=== PATIENT | female | born 1995 | race American Indian/Alaskan Native ===

== ENCOUNTER 2019-04-08 13:08 | Emergency (ER) | payer BC, OTHER ==
[2019-04-08] MEDS ORDERED: METOCLOPRAMIDE 10 MG/2 ML INJ IV ONE (16:33)
[2019-04-08] MEDS ORDERED: SODIUM CHLORIDE 0.9% 1000 ML 1,000 ML IV ONE (16:33)
--- NOTE | 2019-04-08 16:35 | Event Note ---
ED Screening Note Date of service: 04/08/19 Time: 16:31 ED Screening Note: 23 y old female at about 10 weeks gestation presents for nausea and vomitting and unable to hold food or liquid denies vag bleed or abd pain This initial assessment/diagnostic orders/clinical plan/treatment(s) is/are subject to change based on patients health status, clinical progression and re- assessment by fellow clinical providers in the ED. Further treatment and workup at subsequent clinical providers discretion. Patient/guardian urged not to elope from the ED as their condition may be serious if not clinically assessed and managed. Initial orders include: labs IVF reglan
[2019-04-08 16:57] LABS: Basophils % (Auto) 0.6 % (0.0-1.8); Eosinophils % (Auto) 0.5 % (0.0-4.3); Hematocrit 40.1 % (30.3-42.9); Hemoglobin 13.2 gm/dl (10.1-14.3); Lymphocytes # (Auto) 1.2 K/mm3 (1.2-5.4); Lymphocytes % (Auto) 25.6 % (13.4-35.0); Mean Corpuscular HGB Conc 33 % (30-34); Mean Corpuscular Volume 86 fl (79-97); Monocytes # (Auto) 0.4 K/mm3 (0.0-0.8); Monocytes % (Auto) 8.2 % (0.0-7.3); Platelet Count 222 K/mm3 (140-440); Red Blood Count 4.69 M/mm3 (3.65-5.03); Red Cell Distribution Width 13.6 % (13.2-15.2)
[2019-04-08 17:13] LABS: BUN/Creatinine Ratio 10; Blood Urea Nitrogen 5 mg/dL (7-17); Calcium 9.6 mg/dL (8.4-10.2); Hemolysis Index 5
--- NOTE | 2019-04-08 19:36 | Emergency Department Report ---
Vomiting/Diarrhea - HPI Chief Complaint: Abdominal Pain Stated Complaint: VOMITTING Time Seen by Provider: 04/08/19 19:04 Severity: moderate Nausea/Vomiting Severity: Moderate Diarrhea Severity: None Pain Severity: None Symptoms: No Watery Diarrhea, No Bloody diarrhea, No Fever, No Able to Tolerate Fluids, No Recent Unusual Foods, No Recent Untreated Water, No Recent use of Antibiotics, No Family w/ Similar Symptoms, No Contacts w/ Similar Symptoms, No Rash, No Hematuria, No Recent URI Symptoms Other History: This is a 23-year-old -[place] female who presents to the emergency room with nausea and vomiting. Patient states she is 10 months . 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 Last menstrual. January 13, 2019, G4, . She denies abdominal pain, diarrhea, fever, chills, hematuria, vaginal bleeding, or vaginal discharge. ED Review of Systems ROS: Stated complaint: VOMITTING Other details as noted in HPI Constitutional: denies: chills, fever Respiratory: denies: cough, shortness of breath, wheezing Cardiovascular: denies: chest pain, palpitations Gastrointestinal: nausea, vomiting. denies: abdominal pain, diarrhea, constipation, hematemesis, melena, hematochezia Genitourinary: denies: urgency, dysuria, discharge Musculoskeletal: denies: back pain, joint swelling, arthralgia Skin: denies: rash, lesions Neurological: denies: headache, weakness, paresthesias Psychiatric: denies: anxiety, depression ED Past Medical Hx - Past Medical History Previous Medical History?: Yes Hx Hypertension: No Hx Heart Attack/AMI: No Hx Congestive Heart Failure: No Hx Diabetes: No Hx Deep Vein Thrombosis: No Hx Renal Disease: No Hx Sickle Cell Disease: No Hx Seizures: No Hx Asthma: No Hx COPD: No Hx HIV: No Additional medical history: ANEMIA - Surgical History Past Surgical History?: No - Social History Smoking Status: Current Every Day Smoker Substance Use Type: None - Medications Home Medications: Home Medications Medication Instructions Recorded Confirmed Last Taken Type HYDROcodone/APAP 5-325 [[place] 1 each PO Q6HR PRN #30 tablet 11/14/15 Unknown Rx 5/325] Ibuprofen [Motrin] 800 mg PO Q8HR PRN #60 tablet 11/14/15 Unknown Rx Azithromycin [Zithromax TAB] 500 mg PO QDAY #2 tablet 12/14/16 Unknown Rx Ondansetron [Zofran Odt] 4 mg PO Q8HR PRN #20 tab.rapdis 04/08/19 Unknown Rx Vomiting Diarrhea Exam - Exam General: Vital signs noted. No distress. Alert and acting appropriately. HEENT: Yes Moist Mucous Membranes, No Pharyngeal Erythema, No Pharyngeal Exudates, No Rhinorrhea, No Conjuctival Injection, No Frontal Tenderness, No Maxillary Tenderness Neck: No Adenopathy, No Rigidity Lungs: Yes Clear Lung Sounds, Yes Good Air Exchange, No Wheezes, No Stridor, No Cough, No Nasal Flaring, No Retractions, No Use of Accessory Muscles Heart exam: Regular: Yes, Murmur: No, Tachycardia: No Abdomen: Tenderness: No, Peritoneal Signs: No, Distention: No, Hyperactive Bowel sounds: No Skin exam: Rash: No, Edema: No, Normal turgor: Yes Neurologic: Alert and oriented, no deficits. Musculoskeletal: Unremarkable. ED Course Vital Signs 04/08/19 04/08/19 13:44 16:28 Temperature 98.0 F 98 F Pulse Rate 62 59 L Respiratory 18 18 Rate Blood Pressure 114/74 114/74 O2 Sat by Pulse 99 99 Oximetry ED Medical Decision Making - Lab Data Result diagrams: 04/08/19 16:37 04/08/19 16:37 Lab Results 04/08/19 04/08/19 04/08/19 Range/Units 16:37 16:37 16:37 WBC 4.8 (4.5-11.0) K/mm3 RBC 4.69 (3.65-5.03) M/mm3 Hgb 13.2 (10.1-14.3) gm/dl Hct 40.1 (30.3-42.9) % MCV 86 (79-97) fl MCH 28 (28-32) pg MCHC 33 (30-34) % RDW 13.6 (13.2-15.2) % Plt Count 222 (140-440) K/mm3 Lymph % (Auto) 25.6 (13.4-35.0) % Glenn % (Auto) 8.2 H (0.0-7.3) % Eos % (Auto) 0.5 (0.0-4.3) % Baso % (Auto) 0.6 (0.0-1.8) % Lymph # 1.2 (1.2-5.4) K/mm3 Glenn # 0.4 (0.0-0.8) K/mm3 Eos # 0.0 (0.0-0.4) K/mm3 Baso # 0.0 (0.0-0.1) K/mm3 Seg Neutrophils % 65.1 (40.0-70.0) % Seg Neutrophils # 3.2 (1.8-7.7) K/mm3 Sodium 134 L (137-145) mmol/L Potassium 3.8 (3.6-5.0) mmol/L Chloride 97.3 L (98-107) mmol/L Carbon Dioxide 21 L (22-30) mmol/L Anion Gap 20 mmol/L BUN 5 L (7-17) mg/dL Creatinine 0.5 L (0.7-1.2) mg/dL Estimated GFR > 60 ml/min BUN/Creatinine Ratio 10 % Glucose 94 (65-100) mg/dL Calcium 9.6 (8.4-10.2) mg/dL HCG, Quant 40202 H (0-4) mIU/mL - Medical Decision Making This is a 23-year-old female that is 10 weeks with nausea and vomiting for several days. Patient denies vaginal bleeding, abdominal pain, vaginal discharge, diarrhea, fever, chills, urinary frequency, urgency, dysuria, or hematuria. Abdomen nontender and no CVA tenderness on exam. No [facility] CONTENT SPECIALIST follow- up. Work-up: CBC, CMP, & hCG quant. All labs are unremarkable. Given IV fluids and anti-medics. P.o. trial tolerated. Start Zofran for nausea. Referral to [facility] for continued care. Patient discharged home stable. Given strict return instructions. Critical care attestation.: If time is entered above; I have spent that time in minutes in the direct care of this critically ill patient, excluding procedure time. ED Disposition Clinical Impression: Hyperemesis gravidarum Nausea and vomiting Qualifiers: Vomiting type: unspecified Vomiting Intractability: non-intractable Qualified Code(s): R11.2 - Nausea with vomiting, unspecified Disposition: - TO HOME OR SELFCARE Is pt being admited?: No Condition: Stable Instructions: Abdominal Pain (ED), Hyperemesis Gravidarum (ED) Additional Instructions: Take Zofran 3 times a day as needed for nausea or vomiting. I have also provided a list of [facility] SPECIALIST's for you to follow-up with for continued care of your . Return to the emergency room only if worsening symptoms. Prescriptions: Ondansetron [Zofran Odt] 4 mg PO Q8HR PRN #20 tab.rapdis PRN Reason: Nausea And Vomiting Referrals: [facility] [Provider Group] - 3-5 Days [facility] [Provider Group] - 3-5 Days [facility] [Provider Group] - 3-5 Days Forms: Work/School Release Form(ED) Time of Disposition: 20:48
[2019-04-08] MEDS ORDERED: METOCLOPRAMIDE 10 MG/2 ML INJ ONE ×2 (19:41→19:51)
[2019-04-08] MEDS ORDERED: SODIUM CHLORIDE 0.9% 1000 ML 1,000 ML ONE (19:41)
[2019-04-08 21:45] VITALS: BP 100/62
== END 2019-04-08 21:15 | disposition home or self-care (01) ==
LOC: ED 13:08
DX: O21.0 Mild hyperemesis gravidarum (principal); O21.8 Other vomiting complicating pregnancy; D64.9 Anemia, unspecified; F17.200 Nicotine dependence, unspecified, uncomplicated; Z3A.10 10 weeks gestation of pregnancy; Z79.1 Long term (current) use of non-steroidal anti-inflammatories (NSAID); Z79.899 Other long term (current) drug therapy
CPT/HCPCS: 36415; 80048; 84702; 85025; 96361; 96374; 99283; J2765; J7030

== ENCOUNTER 2019-08-01 16:21 | Outpatient (CLI) | payer BC, OTHER ==
[2019-08-01] MEDS ORDERED: LACTATED RINGERS 500 ML IV ONE (16:42)
[2019-08-01 16:44] VITALS: BP 97/54
--- NOTE | 2019-08-01 18:26 | Ultrasound Report ---
US OB limited INDICATION / CLINICAL INFORMATION: ABDOMINAL PAIN-PLACENTA. COMPARISON: None available. FINDINGS: Viable single uterine gestation in the cephalic presentation. heart rate is 156 bpm. Anterior placenta appears normal. IMPRESSION: 1. Viable single fetus. 2. Normal anterior placenta. Signer Name: Earl Pichardo MD Signed: 08/01/2019 6:22 PM Workstation Name: [id number]
== END 2019-08-01 18:37 | disposition home or self-care (01) ==
LOC: TRG 16:21 → APU 16:22 → TRG 18:37
PROVIDERS: ATTEND Obstetrics & Gynecology
DX: O26.892 Other specified pregnancy related conditions, second trimester (principal); R10.9 Unspecified abdominal pain; R19.7 Diarrhea, unspecified; Z3A.27 27 weeks gestation of pregnancy
CPT/HCPCS: 59025; 76815

== ENCOUNTER 2019-08-02 11:41 | Outpatient (CLI) | payer BC, OTHER ==
[2019-08-02] MEDS ORDERED: LACTATED RINGERS 1,000 ML IV ONE (12:27)
[2019-08-02] MEDS ORDERED: ONDANSETRON 4 MG/2 ML INJ IM ONE (13:08)
[2019-08-02] MEDS ORDERED: DIPHENOXYLATE/ATROPINE TAB PO ONE (13:20)
[2019-08-02] MEDS ORDERED: ONDANSETRON 4 MG/2 ML INJ ONE (13:45)
[2019-08-02] MEDS ORDERED: ONDANSETRON 4 MG/2 ML INJ IV ONE (13:45)
[2019-08-02 14:19] VITALS: BP 96/52
[2019-08-02 14:25] LABS: Bacteria,Urine 2+ /HPF (Negative); Bilirubin,Urine NEG (Negative); Blood,Urine NEG (Negative); Color,Urine Amber (Yellow); Mucus,Urine 3+ /HPF; Urobilinogen,Urine < 2.0 mg/dL (<2.0)
[2019-08-02] MEDS ORDERED: CLINDAMYCIN 600 MG/50 mL 600 MG/50 ML BAG IV ONE (15:04)
[2019-08-02 15:34] LABS: Basophils % (Auto) 0.2 % (0.0-1.8); Eosinophils % (Auto) 0.8 % (0.0-4.3); Hematocrit 34.8 % (30.3-42.9); Hemoglobin 11.9 gm/dl (10.1-14.3); Lymphocytes % (Auto) 23.3 % (13.4-35.0); Mean Corpuscular HGB Conc 34 % (30-34); Mean Corpuscular Volume 89 fl (79-97); Monocytes # (Auto) 0.4 K/mm3 (0.0-0.8); Monocytes % (Auto) 10.3 % (0.0-7.3); Platelet Count 206 K/mm3 (140-440); Red Blood Count 3.91 M/mm3 (3.65-5.03); Red Cell Distribution Width 14.3 % (13.2-15.2)
[2019-08-02 16:00] LABS: Alanine Aminotransferase 6 units/L (7-56); Albumin 3.8 g/dL (3.9-5); BUN/Creatinine Ratio 6; Blood Urea Nitrogen 3 mg/dL (7-17); Calcium 9.2 mg/dL (8.4-10.2); Hemolysis Index 19
== END 2019-08-02 16:28 | disposition home or self-care (01) ==
LOC: TRG 11:41 → APU 11:44 → TRG 16:28
PROVIDERS: ATTEND Obstetrics & Gynecology
DX: O21.2 Late vomiting of pregnancy (principal); O26.892 Other specified pregnancy related conditions, second trimester; R19.7 Diarrhea, unspecified; O47.02 False labor before 37 completed weeks of gestation, second trimester; Z3A.27 27 weeks gestation of pregnancy
CPT/HCPCS: 36415; 59020; 80053; 81001; 85025; 87045; 87086; 96361; 96374; 96375; J2405; J7120; 96360; 96365